=== PATIENT | female | born 1970 | race Two or more races ===

== ENCOUNTER → 2016-10-12 | Outpatient (CLI) | payer OTHER ==
[2014-08-11 20:44] VITALS: BP 145/65
--- NOTE | 2016-10-12 12:40 | RAD ---
Radionuclide gastric imaging study, 10/12/2016: History: Abdominal pain, nausea and vomiting The study was performed utilizing a solid test meal radiolabeled with 2.0 mCi of technetium 99m sulfur colloid. Imaging obtained out to one hour showed only minimal gastric emptying. The time activity curve is relatively flat. An accurate T1/2 cannot be calculated in this situation. IMPRESSION: Markedly delayed gastric emptying
== END | disposition home or self-care (01) ==
LOC: NM 07:17
PROVIDERS: ATTEND Internal Medicine Gastroenterology
DX: K30 Functional dyspepsia (principal)
CPT/HCPCS: 78264; A9541

== ENCOUNTER → 2017-12-17 | Outpatient (CLI) | payer OTHER | END | disposition home or self-care (01) | LOC: ECHO 09:25 | DX: I31.3 Pericardial effusion (noninflammatory) (principal); E78.5 Hyperlipidemia, unspecified; I10 Essential (primary) hypertension; E78.00 Pure hypercholesterolemia, unspecified; Z90.710 Acquired absence of both cervix and uterus | CPT/HCPCS: 93306 ==

== ENCOUNTER → 2018-10-21 | Outpatient (CLI) | payer OTHER ==
[2014-08-11 20:44] VITALS: BP 145/65
[~2018-10-21] MED LIST: INSU100I13 SQ; INSU100V31 SQ; LISI2.5T PO; METO-239 PO
--- NOTE | 2018-10-21 16:28 | KCIC ---
Pelvic ultrasound HISTORY: Partial hysterectomy in 2010. Pelvic pain. COMPARISON: None Transabdominal scan No abnormality is seen in the region of the vaginal cuff. Right ovary measures 3.3 x 2.9 x 1.5 cm with intact blood supply and no evidence of mass. Left ovary is not well seen Endovaginal scan No abnormality is seen in the region of the vaginal cuff. Right ovary demonstrates intact blood supply. Left ovary measures 2.9 x 2.1 x 2.1 cm with intact blood supply. 16 mm complex lesion in the left ovary with posterior acoustic enhancement is nonvascular and likely a complex cyst. No significant free fluid is seen. IMPRESSION: 1. Small left ovarian lesion compatible with a complex cyst. 2. Right ovary is unremarkable. Electronically signed by: Albino Valdez MD (10/21/2018 4:25 PM) [id number]
== END | disposition home or self-care (01) ==
LOC: KCIC US 14:11
PROVIDERS: ATTEND Nurse Practitioner Gerontology
DX: N83.9 Noninflammatory disorder of ovary, fallopian tube and broad ligament, unspecified (principal); Z90.710 Acquired absence of both cervix and uterus
CPT/HCPCS: 76830; 76856

== ENCOUNTER → 2018-10-31 | Outpatient (CLI) | payer OTHER ==
[2014-08-11 20:44] VITALS: BP 145/65
[~2018-10-31] MED LIST changes: +IOHEXOL 240 MG/ML 50ML VIAL. PO ONE; +IOHEXOL 300 MG/ML 100ML VIAL. IV ONE
--- NOTE | 2018-10-31 12:01 | KCIC ---
CT of the abdomen and pelvis with contrast 10/31/2018 11:53 AM Indication: Abdominal pain Comparison study: CT abdomen and pelvis August 04, 2012 Technique: Multidetector CT imaging of the abdomen and pelvis was performed following the administration of IV contrast. Findings: The partially visualized lung bases demonstrate no acute abnormality. Prior hysterectomy and cholecystectomy noted. The liver, spleen, bilateral adrenal glands, bilateral kidneys, and pancreas, are grossly unremarkable. There is no bowel obstruction. No evidence of acute inflammatory change involving visualized bowel is identified. Appendix is visualized and unremarkable in appearance. Bladder is grossly unremarkable. Small cystic structures involving the left ovary noted. CT is limited for evaluation. No free fluid or free air is seen in the abdomen or pelvis. No acute osseous changes are identified. Impression: 1. No evidence of acute intra-abdominal abnormality is identified. 2. Small cystic structures involving the left ovary, poorly evaluated by CT scan. Left ovarian cyst noted on prior ultrasound. Consider follow-up as clinically indicated. CT DOSING PQRS STATEMENT: One or more of the following individualized dose reduction techniques were utilized for this examination: 1. Automated exposure control 2. Adjustment of the mA and/or kV according to patient size 3. Use of iterative reconstruction technique Electronically signed by: Gaston Luong MD (10/31/2018 11:58 AM) [id number]
== END | disposition home or self-care (01) ==
LOC: KCIC CT 10:21
PROVIDERS: ATTEND Nurse Practitioner Gerontology
DX: R10.30 Lower abdominal pain, unspecified (principal); R10.2 Pelvic and perineal pain; I10 Essential (primary) hypertension; E11.9 Type 2 diabetes mellitus without complications; Z90.710 Acquired absence of both cervix and uterus; Z90.49 Acquired absence of other specified parts of digestive tract
CPT/HCPCS: 74177; 82565; Q9966; Q9967